=== PATIENT | female | born 1935 | race Asian ===

== ENCOUNTER 2017-09-30 21:12 | Inpatient (IN) | payer MEDICARE, OTHER ==
[~2017-09-30] VITALS: Ht 165.1 cm; Wt 58.5 kg
[~2017-09-30 21:12] MED LIST: AMLODIPINE BESYL5 MG ORAL; DONEPEZIL HCL10 MG ORAL; EVISTA60 MG ORAL; FUROSEMIDE20 M1 ORAL; GABAPENTIN100 MG ORAL; GLIPIZIDE ER2.5 MG PO; IMIPRAMINE HCL25 MG PO; METFORMIN HCL500 M1 ORAL; METOPROLOL SUC100 MG ORAL; POTASSIUM CHLO10 ME3 ORAL; SIMVASTATIN20 MG ORAL; TOFRANIL50 MG ORAL; VERAPAMIL ER120 MG PO; WARFARIN SODIUM3 MG ORAL
[2017-09-30] MEDS ORDERED: NS 1000ml 1,900 ML IVLG ONE (21:30)
[2017-09-30 21:59] LABS: BASOPHILS % (AUTO) 0.7 % (0.0-2.0); EOSINOPHILS % (AUTO) 0.4 % (0.0-3.0); HEMATOCRIT 38.8 % (37.0-47.0); HEMOGLOBIN 13.1 G/DL (12.0-16.0); LYMPHOCYTES % (AUTO) 27.8 % (20.0-45.0); MEAN CORPUSCULAR VOLUME 100 FL (80-99); MONOCYTES % (AUTO) 9.5 % (1.0-10.0); NEUTROPHILS % (AUTO) 61.6 % (45.0-75.0); PLATELET COUNT 166 K/UL (150-450); RED BLOOD COUNT 3.88 M/UL (4.20-5.40); RED CELL DISTRIBUTION WIDTH 13.2 % (11.6-14.8); WHITE BLOOD COUNT 8.4 K/UL (4.8-10.8)
[2017-09-30 22:13] LABS: ANION GAP 10 mmol/L (5-15); BLOOD UREA NITROGEN 66 mg/dL (7-18); CALCIUM 8.9 MG/DL (8.5-10.1); CARBON DIOXIDE 20 MMOL/L (21-32); CHLORIDE 102 MMOL/L (98-107); CREATININE 3.1 MG/DL (0.55-1.30); POTASSIUM 4.3 MMOL/L (3.5-5.1); SODIUM 132 MMOL/L (136-145)
[2017-09-30 22:30] LABS: ALANINE AMINOTRANSFERASE 17 U/L (12-78); ALBUMIN 2.6 G/DL (3.4-5.0); ALBUMIN/GLOBULIN RATIO 0.9 (1.0-2.7); ALKALINE PHOSPHATASE 57 U/L (46-116); ASPARTATE AMINO TRANSFERASE 24 U/L (15-37); BILIRUBIN,TOTAL 0.5 MG/DL (0.2-1.0); CKMB 1.8 NG/ML (0.0-3.6); CREATINE KINASE 44 U/L (26-308)
[2017-09-30 22:55] VITALS: BP 81/39
[2017-09-30 23:06] LABS: APPEARANCE,URINE CLEAR; BILIRUBIN, URINE 1+ (NEGATIVE); COLOR,URINE YELLOW; GLUCOSE, URINE (UA) NEGATIVE (NEGATIVE); KETONES,URINE NEGATIVE (NEGATIVE); LEUKOCYTE ESTERASE ,URINE 1+ (NEGATIVE); NITRITE,URINE NEGATIVE (NEGATIVE); PH,URINE 5 (4.5-8.0); PROTEIN,URINE NEGATIVE (NEGATIVE); UROBILINOGEN,URINE 1 MG/DL (0.0-1.0)
[2017-09-30 23:58] VITALS: BP 92/53
[2017-10-01] VITALS (8 sets, daily range): BP systolic 79–100; BP diastolic 41–56
[2017-10-01] MEDS ORDERED: cefTRIAXone 1 GM in NS 55 ML IVPB ONE ×2
[2017-10-01] MEDS ORDERED: ACETAMINOPHEN325 M1 ORAL (00:18)
[2017-10-01] MEDS ORDERED: CATAPRES0.1 MG ORAL (00:18)
[2017-10-01] MEDS ORDERED: ALBUTEROL2.5 MG/3 M INH (00:18)
[2017-10-01] MEDS ORDERED: PRAVASTATIN SOD20 M1 ORAL (00:18)
[2017-10-01] MEDS ORDERED: MILK OF MA400 MG/51 ORAL (00:18)
[2017-10-01] MEDS ORDERED: METOPROLOL SUCC50 MG ORAL (00:18)
[2017-10-01] MEDS ORDERED: MELATONIN3 MG ORAL (00:18)
[2017-10-01] MEDS ORDERED: OMEPRAZOLE20 M2 ORAL (00:18)
[2017-10-01] MEDS ORDERED: DULCOLAX10 MG RC (00:18)
[2017-10-01] MEDS ORDERED: ROBITUSSIN COU237 M1 PO (00:18)
[2017-10-01] MEDS ORDERED: SPIRONOLACTONE25 MG ORAL (00:18)
[2017-10-01] MEDS ORDERED: DUONEB 0.5-3(2.53 ML HHN (00:18)
[2017-10-01] MEDS ORDERED: PLAVIX75 MG ORAL (00:30)
[2017-10-01] MEDS ORDERED: POTASSIUM CHLO20 ME1 ORAL (00:30)
[2017-10-01] MEDS ORDERED: TRAMADOL HCL50 MG ORAL (00:30)
[2017-10-01] MEDS ORDERED: IRON325 M1 PO (00:30)
[2017-10-01] MEDS ORDERED: LACTULOSE20 GM/301 ORAL (00:30)
[2017-10-01] MEDS ORDERED: ASPIR 8181 MG ORAL (00:30)
[2017-10-01] MEDS ORDERED: NAMENDA5 MG ORAL (00:30)
[2017-10-01] MEDS ORDERED: VITAMIN D1000 UNI1 ORAL (00:30)
[2017-10-01] MEDS ORDERED: DONEPEZIL HCL10 M2 ORAL (00:30)
[2017-10-01] MEDS ORDERED: FUROSEMIDE20 M1 ORAL (00:30)
[2017-10-01] MEDS ORDERED: GABAPENTIN100 MG ORAL (00:30)
--- NOTE | 2017-10-01 01:06 | Emergency Room Report ---
History of Present Illness General Chief Complaint: Generalized Weakness Source: Family Member, Medical Record, EMS, PMD Present Illness HPI Is an 80-year-old Faro[place] female with a history of hypertension, atrial fibrillation with a pacemaker. She presented from skilled nursing with altered mental status. Onset for couple days. No fever or chills. No nausea no vomiting. No diarrhea. Unknown chest pain. History from the nursing of [facility] and recent admission to [facility] last month. Allergies: Coded Allergies: No Known Allergies (Unverified , 11/07/13) Patient History Past Medical History: see triage record, old chart reviewed, HTN Past Surgical History: other Pertinent Family History: none Social History: Denies: smoking Last Menstrual Period: NA Now: No Immunizations: other Reviewed Nursing Documentation: PMH: Agreed, PSxH: Agreed Nursing Documentation-PMH Hx Hypertension: Yes Hx Pacemaker: Yes Hx Diabetes: Yes Hx Cancer: No Review of Systems Constitutional: Reports: weakness Eye: Denies: eye pain, blurred vision ENT: Denies: ear pain, nose congestion, throat swelling Respiratory: Denies: cough, shortness of breath Cardiovascular: Denies: chest pain, palpitations Gastrointestinal: Denies: abdominal pain, diarrhea, nausea, vomiting Musculoskeletal: Denies: back pain, joint pain Skin: Denies: rash Neurological: Denies: headache, numbness Endocrine: Denies: increased thirst, increased urine Hematologic/Lymphatic: Denies: easy bruising All Other Systems: negative except mentioned in HPI Physical Exam Vital Signs Date Time Temp Pulse Resp B/P (MAP) Pulse Ox O2 Delivery O2 Flow Rate FiO2 09/30/17 21:08 98.1 76 20 81/45 96 Nasal Cannula 2.0 vitals with hypotension Sp02 EP Interpretation: reviewed, normal General Appearance: no apparent distress, lethargic Head: normocephalic, atraumatic Eyes: bilateral eye PERRL, bilateral eye EOMI ENT: hearing grossly normal, normal pharynx Neck: full range of motion, supple, no meningismus Respiratory: chest non-tender, lungs clear, normal breath sounds Cardiovascular #1: regular rate, rhythm, no murmur Gastrointestinal: normal bowel sounds, non tender, no mass, no organomegaly, no bruit, non-distended Musculoskeletal: back normal, normal range of motion Neurologic: grossly normal Skin: warm/dry Procedures Critical Care Time Critical Care Time Critical care is mandated in this patient who presented with hypotension. Patient require my urgent intervention to attenuate the risks of metabolic collapse which may lead to cardiovascular collapse and . Critical care time is 35 minutes excluding any reportable procedure. Critical care time included evaluation, multiple reevaluation, looking at old charts, interpreting laboratory and diagnostic data, discussing case with patient and family and consultants, and charting. Medical Decision Making Diagnostic Impression: Primary Impression: Toxic metabolic encephalopathy Additional Impressions: ARF (acute renal failure) Qualified Codes: N17.9 - Acute kidney failure, unspecified Hypotension Qualified Codes: I95.9 - Hypotension, unspecified ER Course Patient with otherwise weakness. No obvious infection. She does have some mild bacteria in the urine. Will start on antibiotics. Blood pressure improved with IV fluid. I discussed the case with Dr. Lo who will admit. Lab Results Impression labs unremarkable EKG Diagnostic Results Rate: normal Rhythm: other - Paced ST Segments: no acute changes Rhythm Strip Diag. Results Rhythm Strip Time: 01:05 EP Interpretation: yes Rate: 70 Rhythm: NSR, no PVC's, no ectopy Chest X-Ray Diagnostic Results Chest X-Ray Diagnostic Results : Chest X-Ray Ordered: Yes # of Views/Limited/Complete: 1 View Indication: Chest Pain EP Interpretation: Yes Interpretation: no consolidation, no effusion, no pneumothorax, no acute cardiopulmonary disease Impression: No acute disease Electronically Signed by: Chuckie Simmons MD CT/MRI/US Diagnostic Results CT/MRI/US Diagnostic Results : Imaging Test Ordered: ct head Impression read by radiologist. Neg Last Vital Signs Date Time Temp Pulse Resp B/P (MAP) Pulse Ox O2 Delivery O2 Flow Rate FiO2 10/01/17 00:50 98.1 70 16 97/56 99 Nasal Cannula 2.0 Status: improved Disposition: ADMITTED INPATIENT Condition: Serious Referrals: NON PHYSICIAN (PCP) CHUCKIE SIMMONS M.D. Oct 01, 2017 01:06
[2017-10-01] MEDS ORDERED: Warfarin Sodium 5mg ORAL ONE ×2 (04:00→17:00)
[2017-10-01] MEDS ORDERED: Vancomycin 1gm inj IVPB ONE (04:32)
[2017-10-01] MEDS ORDERED: Vancomycin 1gm/D5W 275ml IVPB ONE ×2 (05:00)
--- NOTE | 2017-10-01 09:47 | Diagnostic Imaging Report ---
Indication: Altered mental status Technique: Continuous helical CT scanning of the head was performed utilizing automated exposure control without intravenous contrast material. Axial and coronal reconstructions were obtained. Comparison: None CT dose: Total DLP 1397 mGycm; CTDI vol 70.5 mGy Findings: There is no acute intracranial hemorrhage, mass effect or cortical edema. The ventricles, cisterns and sulci are prominent consistent with atrophy. Periventricular hypoattenuation is seen, a nonspecific finding. Probable remote lacunar infarcts in the cerebellum. Bilateral basal ganglia calcifications noted. Mastoid air cells are clear. Mucosal thickening noted in some ethmoid air cells. 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 No skull fracture. Impression: No evidence of acute intracranial hemorrhage, mass effect or cortical edema. Atrophy and nonspecific periventricular hypoattenuation suggestive of chronic ischemic microvascular changes. Acute on chronic ischemia not entirely excluded. MRI may be obtained for more sensitive evaluation as clinically indicated. This corresponds with the [facility] preliminary report. The CT scanner at [facility] is accredited by the [employer] and the scans are performed using protocols designed to limit radiation exposure to as low as reasonably achievable to attain images of sufficient resolution adequate for diagnostic evaluation.
[2017-10-01] MEDS: Cefepime HCl 0.5 GM in D5W 55 ML IVPB SCH (09:50)
[2017-10-01 10:35] LABS: BASOPHILS % (AUTO) 0.6 % (0.0-2.0); EOSINOPHILS % (AUTO) 0.2 % (0.0-3.0); HEMATOCRIT 40.1 % (37.0-47.0); HEMOGLOBIN 13.8 G/DL (12.0-16.0); LYMPHOCYTES % (AUTO) 20.7 % (20.0-45.0); MEAN CORPUSCULAR VOLUME 102 FL (80-99); MONOCYTES % (AUTO) 7.1 % (1.0-10.0); NEUTROPHILS % (AUTO) 71.3 % (45.0-75.0); PLATELET COUNT 149 K/UL (150-450); RED BLOOD COUNT 3.94 M/UL (4.20-5.40); RED CELL DISTRIBUTION WIDTH 13.2 % (11.6-14.8)
[2017-10-01 11:01] LABS: ALANINE AMINOTRANSFERASE 17 U/L (12-78); ALBUMIN 2.5 G/DL (3.4-5.0); ALBUMIN/GLOBULIN RATIO 0.8 (1.0-2.7); ALKALINE PHOSPHATASE 70 U/L (46-116); ANION GAP 11 mmol/L (5-15); ASPARTATE AMINO TRANSFERASE 16 U/L (15-37); BILIRUBIN,TOTAL 0.3 MG/DL (0.2-1.0); BLOOD UREA NITROGEN 63 mg/dL (7-18); CALCIUM 8.1 MG/DL (8.5-10.1); CARBON DIOXIDE 18 MMOL/L (21-32); CHLORIDE 107 MMOL/L (98-107); CREATININE 2.4 MG/DL (0.55-1.30); POTASSIUM 4.2 MMOL/L (3.5-5.1); SODIUM 136 MMOL/L (136-145)
[2017-10-01] MEDS ORDERED: Sodium Chloride 500ML 500 ML IV ONE (12:30)
--- NOTE | 2017-10-01 12:49 | Diagnostic Imaging Report ---
. Indication: Altered mental status Technique: XRAY Chest 1v Comparison: 11/15/2013 Findings: Heart is enlarged but stable in size. Atherosclerotic calcifications noted in the aorta. These make her unchanged in position. There is mild interstitial prominence/congestion. There is no focal airspace consolidation, pleural effusion or pneumothorax. There is osteopenia and degenerative change of the spine. . There is compression deformity of an upper lumbar vertebral body, likely L1. Evidence of prior kyphoplasty at a level below that of the compression deformity. Impression: Cardiomegaly and mild interstitial opacification/edema. Correlate for signs of CHF. Age indeterminant upper lumbar compression fracture. Study obtained via the emergency department however patient admitted to the hospital at time of dictation of the final report.
[2017-10-01] MEDS ORDERED: Sodium Chloride 500ML 550 ML IV SCH (13:30)
[2017-10-01] MEDS: NovoLOG Insulin Flexpen SUBQ SCH ×2 (16:38→21:31)
--- NOTE | 2017-10-01 17:54 | Cardiology Report ---
APPROVED REPORT EKG Measurement Heart [id number] AV sequential pacemaker Abnormal ECG
[2017-10-01] MEDS ORDERED: Heparin 5000 units/ml inj SUBQ SCH (21:00)
[2017-10-02] VITALS: BP 98/52
--- NOTE | 2017-10-02 02:45 | History and Physical Report ---
DATE OF ADMISSION: 09/30/2017 CHIEF COMPLAINT: Sepsis and altered mental status. HISTORY OF PRESENT ILLNESS: The patient is an unfortunate female with a history of cirrhosis, hypertension, pacemaker, dementia, atrial fibrillation, and ischemic cardiomyopathy. She was admitted with complaints of altered mental status. The patient is confused and unable to provide any history. On evaluation in the emergency room, the patient's laboratories are significant for a creatinine of 3, sodium of 132. Her troponin was elevated at 0.093. She had x-ray evidence of bilateral infiltrates consistent with pneumonia. The patient has been started on broad-spectrum IV antibiotics. She has been pancultured. She is now admitted for further evaluation and care. PAST MEDICAL HISTORY: As above. PAST SURGICAL HISTORY: None. CURRENT MEDICATIONS: Reconciled and reviewed. ALLERGIES: None. FAMILY HISTORY: None. SOCIAL HISTORY: There is no known history of tobacco, ethanol, or drugs. REVIEW OF SYSTEMS: Unobtainable. PHYSICAL EXAMINATION: GENERAL: The patient is a thin female, in no apparent distress. She is awake and does answer some simple questions, follows commands. VITAL SIGNS: Temperature 98 degrees, pulse 70, respirations 16, and blood pressure 92/53. NECK: Supple. No jugular venous distention. HEART: Regular rate and rhythm. LUNGS: Show significant scattered rhonchi. ABDOMEN: Soft, nontender, and nondistended. EXTREMITIES: Without clubbing or cyanosis. LABORATORY AND DIAGNOSTIC DATA: Chest x-ray, bibasilar infiltrates. White count was 8, hemoglobin 13, hematocrit 38, and platelet count of 162. Sodium is 132, BUN 66, and creatinine was 3.1. Lactic acid was 1.6. Troponin 0.093. ASSESSMENT: This is an unfortunate female with a history of atrial fibrillation, ischemic cardiomyopathy, and cirrhosis, admitted with acute renal failure and sepsis secondary to pneumonia. PLAN: Cautious hydration. Monitor volume status closely. Broad-spectrum IV antibiotics. Follow up cultures. Check an ammonia level. Cardiology, Renal, Pulmonary, and ID consultations to be obtained. The patient's status is currently guarded. Satish Dobbins M.D. DR: GARCIA JOB#: [id number] CC:
[2017-10-02 04:00] VITALS: BP 104/43
[2017-10-02] MEDS: NovoLOG Insulin Flexpen SUBQ SCH ×4 (06:29→20:55)
--- NOTE | 2017-10-02 06:30 | Progress Note ---
DATE: 10/01/2017 CARDIOLOGY PROGRESS NOTE SUBJECTIVE: The patient was seen last evening in the emergency room. She remains withdrawn and lethargic although somewhat more responsive today. She continues to have episodes of low blood pressure readings, below 90 systolic. OBJECTIVE: VITAL SIGNS: Blood pressure 79/46, pulse 72, and respiratory rate 18. Presently afebrile. Oxygen saturation on room air is 92%. HEENT: Temporal wasting. Dry mucous membranes. LUNGS: Bilateral breath sounds with scattered rhonchi. HEART: Regular rhythm and rate. Normal S1 and S2 with a fourth heart sound and a 1/6 systolic murmur at the base. ABDOMEN: Soft and nontender. EXTREMITIES: Without edema. Capillary refill is diminished. LABORATORY DATA: Chest x-ray with bilateral infiltrates. hvac manager reveals a paced rhythm. White count 9 and hemoglobin 13.8. Sodium 136, potassium 4.2, bicarbonate 18, BUN 63, and creatinine 2.4. Troponin 0.087. Albumin 2.5. Pro-natriuretic peptide over 10,000. IMPRESSION: 1. Healthcare-acquired pneumonia. 2. Sepsis, shock. 3. Acute renal failure. 4. Hypertensive cardiomyopathy. 5. Acute myocardial infarction. 6. Azcimzeh-ov-iqiiot protein-calorie malnutrition. 7. Acute on chronic diastolic congestive heart failure. PLAN: 1. Continue hydration with isotonic saline. 2. Empiric broad-spectrum antibiotics. 3. Follow up culture results. 4. Fluid challenge for low blood pressure, hope to avoid pressors. 5. Serial troponin. 6. DVT prophylaxis. 7. Respiratory hygiene. 8. Monitor cardiorenal parameters and volume status. Alexander Lo M.D. DR: HOLLAND JOB#: [id number] CC:
--- NOTE | 2017-10-02 06:36 | Cardiology Report ---
APPROVED REPORT EXAM: Two-dimensional and M-mode echocardiogram with Doppler and color Doppler. INDICATION Congestive Heart Failure M-Mode DIMENSIONS IVSd1.4 (0.7-1.1cm)Left Atrium (MM)5.4 (1.6-4.0cm) LVDd4.8 (3.5-5.6cm)Aortic Root3.1 (2.0-3.7cm) PWd1.5 (0.7-1.1cm)Aortic Cusp Exc.1.8 (1.5-2.0cm) LVDs2.9 (2.5-4.0cm) PWs1.9 cm Technically difficult study due to poor acoustical windows. Normal left ventricular chamber size, systolic function and wall motion. Left ventricular ejection fraction estimated to be 60-65%. No evidence of left ventricular hypertrophy. No evidence of pericardial or pleural effusion. Right cardiac chamber sizes are within normal limits. Moderate left atrial enlargement by 2D. Focal aortic valve sclerosis with adequate cusp excursion. Thickened mitral valve leaflets with normal excursion. Mild mitral annulus and aortic root calcification. Pulmonic valve is well visualized. Normal tricuspid valve structure. IVC is normal in size and collapsible with respiration. Probable pacemaker wire present in the right side chambers. A color flow and spectral Doppler study was performed and revealed: No aortic regurgitation. Mild mitral regurgitation. Mitral inflow velocities indicates possible pseudo normalization pattern implying significant left ventricular diastolic dysfunction. Moderate to severe tricuspid regurgitation. Tricuspid systolic velocities suggests peak right ventricular systolic pressure of 40 mmHg Consistent with mild pulmonary hypertension.
[2017-10-02 08:00] VITALS: BP 117/65
[2017-10-02] MEDS: Cefepime HCl 0.5 GM in D5W 55 ML IVPB SCH (09:03)
[2017-10-02 09:30] LABS: BASOPHILS % (AUTO) 0.5 % (0.0-2.0); EOSINOPHILS % (AUTO) 0.6 % (0.0-3.0); HEMATOCRIT 37.5 % (37.0-47.0); HEMOGLOBIN 12.7 G/DL (12.0-16.0); LYMPHOCYTES % (AUTO) 23.1 % (20.0-45.0); MEAN CORPUSCULAR VOLUME 102 FL (80-99); MONOCYTES % (AUTO) 6.1 % (1.0-10.0); NEUTROPHILS % (AUTO) 69.7 % (45.0-75.0); PLATELET COUNT 140 K/UL (150-450); RED BLOOD COUNT 3.66 M/UL (4.20-5.40); RED CELL DISTRIBUTION WIDTH 13.5 % (11.6-14.8); WHITE BLOOD COUNT 7.5 K/UL (4.8-10.8)
[2017-10-02 10:03] LABS: ALANINE AMINOTRANSFERASE 10 U/L (12-78); ALBUMIN 2.4 G/DL (3.4-5.0); ALBUMIN/GLOBULIN RATIO 0.8 (1.0-2.7); ALKALINE PHOSPHATASE 48 U/L (46-116); ANION GAP 7 mmol/L (5-15); ASPARTATE AMINO TRANSFERASE 15 U/L (15-37); BILIRUBIN,TOTAL 0.4 MG/DL (0.2-1.0); BLOOD UREA NITROGEN 56 mg/dL (7-18); CALCIUM 8.2 MG/DL (8.5-10.1); CARBON DIOXIDE 19 MMOL/L (21-32); CHLORIDE 114 MMOL/L (98-107); CREATININE 1.6 MG/DL (0.55-1.30); POTASSIUM 4.5 MMOL/L (3.5-5.1); SODIUM 140 MMOL/L (136-145)
--- NOTE | 2017-10-02 10:21 | General Progress Note ---
Assessment/Plan Problem List: (1) Cirrhosis ICD Codes: K74.60 - Unspecified cirrhosis of liver SNOMED: 31597805 (2) Hepatic encephalopathy ICD Codes: K72.90 - Hepatic failure, unspecified without coma SNOMED: 63315852 (3) Anemia (4) Acute CHF (5) Respiratory failure, acute (6) Hypokalemia (7) Hypotension ICD Codes: I95.9 - Hypotension, unspecified SNOMED: 57798053 Qualifiers: Qualified Codes: I95.9 - Hypotension, unspecified (8) Toxic metabolic encephalopathy ICD Codes: G92 - Toxic encephalopathy SNOMED: 733568413 (9) ARF (acute renal failure) ICD Codes: N17.9 - Acute kidney failure, unspecified SNOMED: 94349097 Qualifiers: Qualified Codes: N17.9 - Acute kidney failure, unspecified Status: stable Assessment/Plan swallow eval ivf iv abx follow up cultures monitor cxr lactulose added monitor renal fxn Subjective ROS Limited/Unobtainable: No Constitutional: Reports: malaise, weakness HEENT: Reports: no symptoms Cardiovascular: Reports: no symptoms Respiratory: Reports: no symptoms Gastrointestinal/Abdominal: Reports: no symptoms Genitourinary: Reports: no symptoms Neurologic/Psychiatric: Reports: pre-existing deficit Endocrine: Reports: no symptoms Hematologic/Lymphatic: Reports: no symptoms Allergies: Coded Allergies: No Known Allergies (Unverified , 11/07/13) All Systems: reviewed and negative except above Subjective no events. bp better. no fever or chills. Objective Last 24 Hour Vital Signs Date Time Temp Pulse Resp B/P (MAP) Pulse Ox O2 Delivery O2 Flow Rate FiO2 10/02/17 08:00 97.9 70 20 117/65 95 Room Air 10/02/17 04:00 70 10/02/17 04:00 99.0 66 20 104/43 96 Room Air 10/02/17 00:00 99.1 70 18 98/52 95 Room Air 10/02/17 00:00 70 10/01/17 20:00 70 10/01/17 20:00 98.3 72 20 100/45 96 Room Air 10/01/17 16:00 97.9 69 20 99/42 94 Room Air 10/01/17 16:00 70 10/01/17 14:45 84/44 10/01/17 13:39 83/41 10/01/17 12:00 70 10/01/17 12:00 96.8 72 18 79/46 92 Room Air Intake and Output 10/01/17 10/02/17 19:00 07:00 Intake Total 1430 ml Output Total 450 ml 800 ml Balance 980 ml -800 ml Intake IV Total 1430 ml Output Urine Total 450 ml 800 ml # Bowel Movements 1 Laboratory Tests 10/02/17 08:25: White Blood Count 7.5, Red Blood Count 3.66L, Hemoglobin 12.7, Hematocrit 37.5, Mean Corpuscular Volume 102H, Mean Corpuscular Hemoglobin 34.8H, Mean Corpuscular Hemoglobin Concent 34.0, Red Cell Distribution Width 13.5, Platelet Count 140L, Mean Platelet Volume 5.9L, Neutrophils (%) (Auto) 69.7, Lymphocytes (%) (Auto) 23.1, Monocytes (%) (Auto) 6.1, Eosinophils (%) (Auto) 0.6, Basophils (%) (Auto) 0.5, Sodium Level 140, Potassium Level 4.5, Chloride Level 114H, Carbon Dioxide Level 19L, Anion Gap 7, Blood Urea Nitrogen 56H, Creatinine 1.6H, Estimat Glomerular Filtration Rate , Glucose Level 136H, Calcium Level 8.2L, Total Bilirubin 0.4, Aspartate Amino Transf (AST/SGOT) 15, Alanine Aminotransferase (ALT/SGPT) 10L, Alkaline Phosphatase 48, Ammonia 70H, Total Protein 5.5L, Albumin 2.4L, Globulin 3.1, Albumin/Globulin Ratio 0.8L, Thyroid Stimulating Hormone (TSH) 0.117L Height (Feet): 5 Height (Inches): 5.00 Weight (Pounds): 129 General Appearance: WD/WN, alert Neck: supple Cardiovascular: normal rate, regular rhythm Respiratory/Chest: chest wall non-tender, lungs clear, normal breath sounds, no respiratory distress Abdomen: normal bowel sounds, non tender, soft, no organomegaly Edema: no edema noted Arm (L), no edema noted Arm (R), no edema noted Leg (L), no edema noted Leg (R), no edema noted Pedal (L), no edema noted Pedal (R), no edema noted Generalized WILFRID ORTIZ Oct 02, 2017 10:21
[2017-10-02] MEDS: Lactulose 10gm/15ml UDC ORAL SCH ×2 (11:14→13:14)
[2017-10-02 12:00] VITALS: BP 114/64
[2017-10-02] MEDS: Lactulose 20gm/30ml UDC ORAL SCH ×2 (14:45→18:47)
[2017-10-02 16:00] VITALS: BP 118/55
[2017-10-02 17:50] LABS: INR 2.1 (0.9-1.1)
[2017-10-02] MEDS ORDERED: Warfarin Sodium 2mg ORAL ONE (19:00)
[2017-10-02 20:00] VITALS: BP 120/76
--- NOTE | 2017-10-02 20:30 | Consultation ---
DATE OF CONSULTATION: 10/02/2017 NEPHROLOGY CONSULTATION CONSULTING PHYSICIAN: Barrett Man M.D. REFERRING PHYSICIAN: Satish Dobbins M.D. and Alexander Lo M.D. CHIEF COMPLAINT/REASON FOR CONSULTATION: Elevated BUN and creatinine. HISTORY OF PRESENT ILLNESS: The patient with a history of cirrhosis, hypertension, atrial fibrillation, pacemaker, dementia, and ischemic cardiomyopathy. She has elevated BUN and creatinine, for which I am asked to evaluate her. She has altered mental status on this admission. She was also recently in [facility] admitted 09/19/2017 with altered mental status and had evidence of cirrhosis on CT scanning. She apparently has a history of hepatitis C as well. The patient had a BUN of 23 and a creatinine of 0.9 per notes 09/18/2017. On this admission, she presented with BUN 66 and a creatinine of 2.1 on 09/30/2017 and current BUN 56, creatinine 1.6, sodium 140, and potassium 4.5. She is unable to give history. PAST SURGICAL HISTORY: Pacemaker. MEDICATIONS: Reviewed on the computer. She is unable to give any further history. ALLERGIES: None known. PHYSICAL EXAMINATION: GENERAL: The patient is lying in bed, in no acute distress. VITAL SIGNS: Temperature 97.9 degrees, pulse 70, respirations 21, blood pressure 114/64, and O2 saturation . HEENT: Keeps her eyes closed during the exam. Oral mucosa is slightly dry. NECK: No adenopathy. LUNGS: Few faint rhonchi. HEART: Rhythm is regular. I hear no murmur. ABDOMEN: Soft. There is appearance of ascites. EXTREMITIES: Show trace to 1+ edema. NEUROLOGIC: The patient is drowsy. She moves all extremities. She is non-Faroese speaking. I am unable to assess her mental status. LABORATORY DATA: Review of pertinent labs, see the history of present illness. She has an albumin of 2.4. TSH of 0.117. Her urinalysis shows negative protein, 0-2 red cells, and 2-4 white cells per high-power field. White count 7.5 and hemoglobin is 12.7. IMPRESSION: The patient has acute kidney injury over the last one to two weeks, most likely this is due to prior diuretics. She also has low albumin and cirrhosis and questionable congestive heart failure. PLAN: At this time, we will hydrate her gradually. Watch closely for any comorbidities. Repeat chest x-ray. Get a renal ultrasound. Avoid nephrotoxic agents. Her overall condition is poor with multiorgan involvement and it is possible she has kidney injury due to sepsis or other cause. She will be evaluated for the above and have appropriate cultures and studies done. We will follow closely in view of her comorbidities. Barrett Man M.D. DR: ABELARDO JOB#: [id number] CC:
[2017-10-03] VITALS: BP 101/54
[2017-10-03 04:00] VITALS: BP 108/56
--- NOTE | 2017-10-03 04:30 | Progress Note ---
DATE: 10/03/2017 CARDIOLOGY PROGRESS NOTE SUBJECTIVE: The patient is more alert and interactive. Blood pressure parameters are still tenuous, but are improving steadily. OBJECTIVE: VITAL SIGNS: Blood pressure 98/52 to 118/55, heart rate 70, and respiratory rate 20. The patient is afebrile. T-max 99.1 degrees. Monitored rhythm is paced. HEENT: Dry mucous membranes. LUNGS: Few rhonchi. CARDIAC: Regular rhythm and rate. Normal S1, S2. A 1/6 systolic murmur at apex. ABDOMEN: Soft. EXTREMITIES: There is 1+ dependent edema. The patient moves all extremities. LABORATORY AND DIAGNOSTIC DATA: Labs are reviewed. BUN and creatinine have improved, 56 and 1.6. Ammonia level is 70. IMPRESSION: 1. Urinary tract infection. 2. Sepsis with shock. 3. Acute renal failure. 4. Acute myocardial infarction. 5. Metabolic encephalopathy. 6. Elevated ammonia level. 7. Severe protein-calorie malnutrition. 8. Permanent pacemaker. 9. Paroxysmal atrial fibrillation. PLAN: 1. Continue intravenous fluid hydration. 2. Monitor volume status and cardiorenal parameters. 3. Antimicrobials. 4. Follow up culture results and sensitivities. 5. Consider addition of lactulose. 6. DVT and stress ulcer prophylaxis. 7. We will attempt to obtain records regarding prior pacemaker interrogation. Alexander Lo M.D. DR: Kassandra JOB#: [id number] CC:
[2017-10-03] MEDS: NovoLOG Insulin Flexpen SUBQ SCH ×4 (06:23→21:00)
[2017-10-03 08:00] VITALS: BP 147/82
--- NOTE | 2017-10-03 09:26 | General Progress Note ---
Assessment/Plan Problem List: (1) Cirrhosis ICD Codes: K74.60 - Unspecified cirrhosis of liver SNOMED: 99544283 (2) Hepatic encephalopathy ICD Codes: K72.90 - Hepatic failure, unspecified without coma SNOMED: 29635516 (3) Anemia (4) Acute CHF (5) Respiratory failure, acute (6) Hypokalemia (7) Hypotension ICD Codes: I95.9 - Hypotension, unspecified SNOMED: 54142742 Qualifiers: Qualified Codes: I95.9 - Hypotension, unspecified (8) Toxic metabolic encephalopathy ICD Codes: G92 - Toxic encephalopathy SNOMED: 288432442 (9) ARF (acute renal failure) ICD Codes: N17.9 - Acute kidney failure, unspecified SNOMED: 99974910 Qualifiers: Qualified Codes: N17.9 - Acute kidney failure, unspecified Status: stable, progressing Assessment/Plan swallow eval noted pos with caution ivf per renal follow up labs- pending for today iv abx follow up cultures monitor cxr lactulose added monitor renal fxn compliance stressed Subjective ROS Limited/Unobtainable: Yes Constitutional: Reports: malaise, weakness HEENT: Reports: no symptoms Cardiovascular: Reports: no symptoms Respiratory: Reports: no symptoms Gastrointestinal/Abdominal: Reports: no symptoms Genitourinary: Reports: no symptoms Neurologic/Psychiatric: Reports: pre-existing deficit Endocrine: Reports: no symptoms Hematologic/Lymphatic: Reports: no symptoms Allergies: Coded Allergies: No Known Allergies (Unverified , 11/07/13) All Systems: reviewed and negative except above Subjective no events. bp better. no fever or chills. not compliant with all meds Objective Last 24 Hour Vital Signs Date Time Temp Pulse Resp B/P (MAP) Pulse Ox O2 Delivery O2 Flow Rate FiO2 10/03/17 04:00 98.1 70 19 108/56 94 Room Air 10/03/17 04:00 70 10/03/17 00:00 70 10/03/17 00:00 96.8 70 20 101/54 95 Room Air 10/02/17 21:00 70 10/02/17 20:00 97.3 70 22 120/76 93 Room Air 10/02/17 16:00 70 10/02/17 16:00 97.9 70 21 118/55 95 Room Air 10/02/17 12:00 97.9 70 21 114/64 93 Room Air 10/02/17 12:00 70 Intake and Output 10/02/17 10/03/17 19:00 07:00 Intake Total 1936 ml 1000 ml Output Total 1100 ml 1000 ml Balance 836 ml 0 ml Intake Oral 400 ml IV Total 1536 ml 1000 ml Output Urine Total 1100 ml 1000 ml # Bowel Movements 1 Laboratory Tests 10/02/17 16:55: Prothrombin Time 22.6H, Prothromb Time International Ratio 2.1H 10/03/17 08:30: Prothrombin Time [Pending], Prothromb Time International Ratio [Pending], White Blood Count [Pending], Red Blood Count [Pending], Hemoglobin [Pending], Hematocrit [Pending], Mean Corpuscular Volume [Pending], Mean Corpuscular Hemoglobin [Pending], Mean Corpuscular Hemoglobin Concent [Pending], Red Cell Distribution Width [Pending], Platelet Count [Pending], Mean Platelet Volume [ Pending], Neutrophils (%) (Auto) [Pending], Lymphocytes (%) (Auto) [Pending], Monocytes (%) (Auto) [Pending], Eosinophils (%) (Auto) [Pending], Basophils (%) (Auto) [Pending], Sodium Level [Pending], Potassium Level [Pending], Chloride Level [Pending], Carbon Dioxide Level [Pending], Blood Urea Nitrogen [Pending], Creatinine [Pending], Estimat Glomerular Filtration Rate [Pending], Glucose Level [Pending], Calcium Level [Pending], Total Bilirubin [Pending], Aspartate Amino Transf (AST/SGOT) [Pending], Alanine Aminotransferase (ALT/SGPT) [Pending] , Alkaline Phosphatase [Pending], Ammonia [Pending], Pro-B-Type Natriuretic Peptide [Pending], Total Protein [Pending], Albumin [Pending], Globulin [Pending ], Random Vancomycin Level [Pending] Height (Feet): 5 Height (Inches): 5.00 Weight (Pounds): 129 Objective General Appearance: WD/WN, alert Neck: supple Cardiovascular: normal rate, regular rhythm Respiratory/Chest: chest wall non-tender, lungs clear, normal breath sounds, no respiratory distress Abdomen: normal bowel sounds, non tender, soft, no organomegaly Edema: no edema noted Arm (L), no edema noted Arm (R), no edema noted Leg (L), no edema noted Leg (R), no edema noted Pedal (L), no edema noted Pedal (R), no edema noted Generalized WILFRID ORTIZ Oct 03, 2017 09:26
[2017-10-03 09:28] LABS: BASOPHILS % (AUTO) 0.7 % (0.0-2.0); EOSINOPHILS % (AUTO) 0.7 % (0.0-3.0); HEMATOCRIT 37.9 % (37.0-47.0); HEMOGLOBIN 12.5 G/DL (12.0-16.0); MEAN CORPUSCULAR VOLUME 103 FL (80-99); MONOCYTES % (AUTO) 6.6 % (1.0-10.0); NEUTROPHILS % (AUTO) 64.9 % (45.0-75.0); PLATELET COUNT 139 K/UL (150-450); RED BLOOD COUNT 3.67 M/UL (4.20-5.40); RED CELL DISTRIBUTION WIDTH 13.8 % (11.6-14.8); WHITE BLOOD COUNT 6.8 K/UL (4.8-10.8)
[2017-10-03 09:41] LABS: INR 2.6 (0.9-1.1)
[2017-10-03 09:46] LABS: ALANINE AMINOTRANSFERASE 17 U/L (12-78); ALBUMIN 2.5 G/DL (3.4-5.0); ALBUMIN/GLOBULIN RATIO 0.8 (1.0-2.7); ALKALINE PHOSPHATASE 45 U/L (46-116); ANION GAP 10 mmol/L (5-15); ASPARTATE AMINO TRANSFERASE 18 U/L (15-37); BILIRUBIN,TOTAL 0.5 MG/DL (0.2-1.0); BLOOD UREA NITROGEN 40 mg/dL (7-18); CALCIUM 8.5 MG/DL (8.5-10.1); CARBON DIOXIDE 18 MMOL/L (21-32); CHLORIDE 114 MMOL/L (98-107); POTASSIUM 4.3 MMOL/L (3.5-5.1); SODIUM 142 MMOL/L (136-145)
[2017-10-03] MEDS: Lactulose 20gm/30ml UDC ORAL SCH ×3 (10:02→17:21)
[2017-10-03] MEDS: Cefepime HCl 0.5 GM in D5W 55 ML IVPB SCH (10:02)
--- NOTE | 2017-10-03 10:49 | Diagnostic Imaging Report ---
Reason For Exam: COUGH Technique: XRAY Chest 1v Comparison: 09/30/2018 Findings: Heart size and mediastinal contours are stable. Left-sided dual-lead pacer unchanged in position. There is mild interstitial edema/opacification. Interval development of streaky opacities at the right base thought to represent subsegmental atelectasis. Age-indeterminate lumbar compression fracture noted on prior exams not definitively seen , likely related to under penetration on today's exam. No pneumothorax. Impression: Cardiomegaly and very mild interstitial prominence. Development of streaky opacity at the right base thought to represent subsegmental atelectasis. Developing infiltrate cannot entirely excluded. Clinical correlation and follow-up exam recommended.
[2017-10-03 12:00] VITALS: BP 107/72
--- NOTE | 2017-10-03 12:45 | Diagnostic Imaging Report ---
Indication: Renal failure Technique: Multiplanar grayscale and Doppler imaging of the kidneys and bladder Comparison: None Findings: Limited exam due to patient body habitus and lack of cooperation with exam positioning. An anechoic well-circumscribed structure with posterior acoustic enhancement compatible with a cyst in the right kidney measures 2.1 cm. No hydronephrosis or sonographically appreciable renal stones bilaterally. Parenchymal echogenicity appears grossly normal. Bladder is decompressed, limiting its evaluation. Impression: Limited evaluation. No evidence of hydronephrosis bilaterally. Parenchymal echogenicity appears grossly within normal limits. Bladder not well evaluated.
--- NOTE | 2017-10-03 13:49 | Nephrology Progress Note ---
Assessment/Plan Problem List: (1) Hepatic encephalopathy (2) Cirrhosis (3) ARF (acute renal failure) (4) Acute CHF Plan bebeto lab improving, likely prerenal. Stop iv to avoid fluid overload. Edema from cirrhosis and malnutrition. Continue lactulose for enceph Subjective ROS Limited/Unobtainable: Yes Objective Objective Last 24 Hour Vital Signs Date Time Temp Pulse Resp B/P (MAP) Pulse Ox O2 Delivery O2 Flow Rate FiO2 10/03/17 12:00 97.3 70 20 107/72 99 Room Air 10/03/17 12:00 70 10/03/17 08:00 70 10/03/17 08:00 97.3 89 18 147/82 95 Room Air 10/03/17 04:00 98.1 70 19 108/56 94 Room Air 10/03/17 04:00 70 10/03/17 00:00 70 10/03/17 00:00 96.8 70 20 101/54 95 Room Air 10/02/17 21:00 70 10/02/17 20:00 97.3 70 22 120/76 93 Room Air 10/02/17 16:00 70 10/02/17 16:00 97.9 70 21 118/55 95 Room Air Intake and Output 10/02/17 10/03/17 19:00 07:00 Intake Total 1936 ml 1000 ml Output Total 1100 ml 1000 ml Balance 836 ml 0 ml Intake Oral 400 ml IV Total 1536 ml 1000 ml Output Urine Total 1100 ml 1000 ml # Bowel Movements 1 Laboratory Tests 10/02/17 16:55: Prothrombin Time 22.6H, Prothromb Time International Ratio 2.1H 10/03/17 08:30: Prothrombin Time 27.4H, Prothromb Time International Ratio 2.6H, White Blood Count 6.8, Red Blood Count 3.67L, Hemoglobin 12.5, Hematocrit 37.9, Mean Corpuscular Volume 103H, Mean Corpuscular Hemoglobin 34.1H, Mean Corpuscular Hemoglobin Concent 33.1, Red Cell Distribution Width 13.8, Platelet Count 139L, Mean Platelet Volume 5.4L, Neutrophils (%) (Auto) 64.9, Lymphocytes (%) (Auto) 27.0, Monocytes (%) (Auto) 6.6, Eosinophils (%) (Auto) 0.7, Basophils (%) (Auto ) 0.7, Sodium Level 142, Potassium Level 4.3, Chloride Level 114H, Carbon Dioxide Level 18L, Anion Gap 10, Blood Urea Nitrogen 40H, Creatinine 1.0, Estimat Glomerular Filtration Rate , Glucose Level 156H, Calcium Level 8.5, Total Bilirubin 0.5, Aspartate Amino Transf (AST/SGOT) 18, Alanine Aminotransferase (ALT/SGPT) 17, Alkaline Phosphatase 45L, Ammonia 54H, Pro-B- Type Natriuretic Peptide 7728H, Total Protein 5.5L, Albumin 2.5L, Globulin 3.0, Albumin/Globulin Ratio 0.8L, Random Vancomycin Level 4.6 Height (Feet): 5 Height (Inches): 5.00 Weight (Pounds): 129 General Appearance: alert, confused EENT: normal ENT inspection Neck: normal alignment Cardiovascular: normal rate Respiratory/Chest: rhonchi - bilaterally Abdomen: distended Extremities: moderate edema Neurologic: disoriented RAFAEL SCOTT Oct 03, 2017 13:49
[2017-10-03] MEDS ORDERED: Cefepime HCl 500 MG in NS 55 ML IVPB ONE (14:00)
[2017-10-03] MEDS ORDERED: Vancomycin 750mg/NS 250ml IVPB SCH (14:00)
[2017-10-03] MEDS: Vancomycin 750mg/NS 250ml IVPB SCH (15:04)
[2017-10-03 16:00] VITALS: BP 116/62
[2017-10-03] MEDS ORDERED: NS 500ML ONE (16:26)
[2017-10-03] MEDS ORDERED: Tubing IV Secondary IV ONE (16:26)
[2017-10-03] MEDS ORDERED: D5W 275ml ONE (16:26)
[2017-10-03 20:00] VITALS: BP 123/68
[2017-10-04] VITALS: BP 121/59
--- NOTE | 2017-10-04 02:30 | Consultation ---
DATE OF CONSULTATION: 09/30/2017 CARDIOLOGY CONSULTATION CONSULTING PHYSICIAN: Alexander Lo M.D. REQUESTING PHYSICIAN: Satish Dobbins M.D. REASON FOR CONSULTATION: Shock with atrial fibrillation. HISTORY OF PRESENT ILLNESS: The patient was seen and evaluated in the emergency room at the request of Dr. Dobbins and her primary care physician, Dr. Ortiz. She is an 80-year-old [place] female. She lives in a senior living facility. She has a history of dementia, but is verbal and interactive at baseline. For the past few days, she has been increasingly withdrawn, lethargic, and had a poor appetite. Today, she was increasingly lethargic and confused. She did not have any specific complaints. There was no fevers or chills. There was no nausea, vomiting, diarrhea, cough, congestion, or chest pain. The patient was seen in the emergency room and noted to have unstable vital signs prompting this consultation. The patient is unable to give any reliable history due to her acute illness as well as a language barrier. I spent 20 minutes time speaking with her primary physician and reviewing her alf chart. PAST MEDICAL HISTORY: Hypertension, permanent pacemaker, paroxysmal atrial fibrillation, type 2 diabetes mellitus, cerebrovascular disease with dementia, osteoarthritis, and osteoporosis. MEDICATIONS: Prior to admission, reviewed and reconciled. ALLERGIES: None. SOCIAL HISTORY: No record of smoking, alcohol, or substance abuse. FAMILY HISTORY: Noncontributory. REVIEW OF SYSTEMS: She was hospitalized at [facility] about a month ago. That hospital course included treatment for an acute infection. She has not had any cough. No nausea, vomiting, or diarrhea. No positive influenza. No change in bowel habits. Her appetite has been poor. She has not had any dysuria. There is no history of thyroid disorder. There is no history of asthma or blood clots in the legs. PHYSICAL EXAMINATION: VITAL SIGNS: Blood pressure 81/45, heart rate 70, respiratory rate 20, and afebrile. HEENT: Temporal wasting. Pale conjunctivae. Dry mucous membranes. NECK: Supple. Jugular venous pressure flat. LUNGS: Diminished breath sounds. No rales. CARDIAC: Regular rhythm and rate. Normal S1. Paradoxically split S2. ABDOMEN: Soft, nontender. EXTREMITIES: Without edema. Capillary refill is diminished. LABORATORY AND DIAGNOSTIC DATA: EKG revealed AV sequential pacemaker. Chest x-ray with mild interstitial edema and upper lumbar compression fracture. Sodium 132, potassium 4.3, bicarbonate 20, BUN 66, and creatinine 3.1. Albumin 2.6. Troponin 0.093. White count 8.4 and hemoglobin 13.1. IMPRESSION: 1. Shock. 2. Sepsis. 3. Hypovolemia. 4. Dehydration. 5. Acute renal failure. 6. Metabolic acidosis. 7. Acute fin-YV-yrbepfizc myocardial infarction, precipitated by hypoperfusion of this coronary bed. 8. Uoqynqso-pr-fpwibr protein-calorie malnutrition. 9. Paroxysmal atrial fibrillation. 10. Permanent pacemaker. PLAN: 1. Volume resuscitation. If inadequate response, start pressors with dopamine. 2. Panculture. 3. Broad-spectrum antibiotics. 4. Aspiration precautions. 5. Respiratory hygiene. 6. Swallow evaluation. 7. Hold antihypertensives. 8. Continue antiplatelet therapy. 9. DVT and stress ulcer prophylaxis. 10. Serial troponin levels. 11. We will obtain pacemaker interrogation if not recently done. Alexander Lo M.D. DR: Kassandra JOB#: [id number] CC:
--- NOTE | 2017-10-04 02:30 | Progress Note ---
DATE: 10/03/2017 CARDIOLOGY PROGRESS NOTE SUBJECTIVE: The patient is complaining of abdominal pain. She is also complaining of irritation from her Sharp catheter. Oral intake is fair. PHYSICAL EXAMINATION: VITAL SIGNS: Blood pressure 107/72, pulse 70, respiratory rate 20, and afebrile. Monitor reveals AV paced rhythm. LUNGS: Few rhonchi. HEART: Regular rhythm and rate. Normal S1, S2. A 1/6 systolic murmur at apex. ABDOMEN: Soft. EXTREMITIES: With trace edema. LABORATORY DATA: White count 6.8 and hemoglobin 12.5. Ammonia 54. Pro-natriuretic peptide 7700. BUN 40, creatinine 1.0, bicarb 18, and potassium 4.3. Albumin 2.5. IMPRESSION: 1. Chronic liver disease. 2. Elevated ammonia, improved. 3. Acute renal failure, resolved. 4. Severe protein-calorie malnutrition. 5. Acute on chronic diastolic congestive heart failure. 6. Ischemic and hypertensive cardiomyopathy. 7. Metabolic acidosis. 8. Hypovolemia, resolved. 9. Sepsis with recovered shock. 10. Permanent pacemaker with atrial fibrillation. PLAN: 1. DC intravenous fluids. 2. Maintain adequate oral intake. 3. Awaiting records regarding pacemaker data. 4. Titrate lactulose. 5. Titrate anti-failure regimen. 6. Antibiotics per Infectious Disease senior science consultant. 7. Discontinue Sharp catheter. 8. Consider abdominal CAT scan if abdominal pain persists. Alexander Lo M.D. DR: LORENZO JOB#: [id number] CC:
[2017-10-04 04:00] VITALS: BP 115/60
[2017-10-04] MEDS: NovoLOG Insulin Flexpen SUBQ SCH ×4 (06:03→20:33)
[2017-10-04 08:00] VITALS: BP 132/70
--- NOTE | 2017-10-04 08:42 | General Progress Note ---
Assessment/Plan Problem List: (1) Cirrhosis ICD Codes: K74.60 - Unspecified cirrhosis of liver SNOMED: 80104860 (2) Hepatic encephalopathy ICD Codes: K72.90 - Hepatic failure, unspecified without coma SNOMED: 69387955 (3) Anemia (4) Acute CHF (5) Respiratory failure, acute (6) Hypokalemia (7) Hypotension ICD Codes: I95.9 - Hypotension, unspecified SNOMED: 56005981 Qualifiers: Qualified Codes: I95.9 - Hypotension, unspecified (8) Toxic metabolic encephalopathy ICD Codes: G92 - Toxic encephalopathy SNOMED: 904838009 (9) ARF (acute renal failure) ICD Codes: N17.9 - Acute kidney failure, unspecified SNOMED: 69788396 Qualifiers: Qualified Codes: N17.9 - Acute kidney failure, unspecified Status: stable, progressing Assessment/Plan swallow eval noted pos with caution monitor labs iv abx follow up cultures monitor cxr lactulose for elevated ammonia monitor renal fxn compliance stressed Subjective ROS Limited/Unobtainable: Yes Constitutional: Reports: malaise, weakness HEENT: Reports: no symptoms Cardiovascular: Reports: no symptoms Respiratory: Reports: no symptoms Gastrointestinal/Abdominal: Reports: no symptoms Genitourinary: Reports: no symptoms Neurologic/Psychiatric: Reports: pre-existing deficit Endocrine: Reports: no symptoms Hematologic/Lymphatic: Reports: no symptoms Allergies: Coded Allergies: No Known Allergies (Unverified , 11/07/13) All Systems: reviewed and negative except above Subjective no events. bp better. no fever or chills. not compliant with all meds. Objective Last 24 Hour Vital Signs Date Time Temp Pulse Resp B/P (MAP) Pulse Ox O2 Delivery O2 Flow Rate FiO2 10/04/17 08:00 97.5 70 16 132/70 95 Room Air 10/04/17 04:00 98.1 70 16 115/60 95 Room Air 10/04/17 04:00 70 10/04/17 00:00 98.1 70 18 121/59 95 Room Air 10/04/17 00:00 70 10/03/17 20:00 98.2 70 20 123/68 95 10/03/17 20:00 70 10/03/17 16:00 70 10/03/17 16:00 98.1 70 18 116/62 95 Room Air 10/03/17 12:00 97.3 70 20 107/72 99 Room Air 10/03/17 12:00 70 Intake and Output 10/03/17 10/04/17 19:00 07:00 Intake Total 665 ml 995 ml Output Total 650 ml Balance 15 ml 995 ml Intake Oral 540 ml 120 ml IV Total 125 ml 875 ml Output Urine Total 650 ml # Voids 2 # Bowel Movements 1 4 Laboratory Tests 10/04/17 07:48: Prothrombin Time [Pending], Prothromb Time International Ratio [Pending], Sodium Level [Pending], Potassium Level [Pending], Chloride Level [Pending], Carbon Dioxide Level [Pending], Blood Urea Nitrogen [Pending], Creatinine [ Pending], Estimat Glomerular Filtration Rate [Pending], Glucose Level [Pending] , Calcium Level [Pending], Total Bilirubin [Pending], Aspartate Amino Transf ( AST/SGOT) [Pending], Alanine Aminotransferase (ALT/SGPT) [Pending], Alkaline Phosphatase [Pending], Total Protein [Pending], Albumin [Pending], Globulin [ Pending] Height (Feet): 5 Height (Inches): 5.00 Weight (Pounds): 129 Objective General Appearance: WD/WN, alert Neck: supple Cardiovascular: normal rate, regular rhythm Respiratory/Chest: chest wall non-tender, lungs clear, normal breath sounds, no respiratory distress Abdomen: normal bowel sounds, non tender, soft, no organomegaly Edema: no edema noted Arm (L), no edema noted Arm (R), no edema noted Leg (L), no edema noted Leg (R), no edema noted Pedal (L), no edema noted Pedal (R), no edema noted Generalized WILFRID ORTIZ Oct 04, 2017 08:42
[2017-10-04 09:05] LABS: ALANINE AMINOTRANSFERASE 18 U/L (12-78); ALBUMIN 2.6 G/DL (3.4-5.0); ALBUMIN/GLOBULIN RATIO 0.8 (1.0-2.7); ALKALINE PHOSPHATASE 48 U/L (46-116); ANION GAP 6 mmol/L (5-15); ASPARTATE AMINO TRANSFERASE 21 U/L (15-37); BILIRUBIN,TOTAL 0.9 MG/DL (0.2-1.0); BLOOD UREA NITROGEN 28 mg/dL (7-18); CARBON DIOXIDE 20 MMOL/L (21-32); CHLORIDE 114 MMOL/L (98-107); CREATININE 0.8 MG/DL (0.55-1.30); POTASSIUM 4.4 MMOL/L (3.5-5.1); SODIUM 140 MMOL/L (136-145)
[2017-10-04 09:17] LABS: INR 2.2 (0.9-1.1)
[2017-10-04] MEDS: Lactulose 20gm/30ml UDC ORAL SCH ×3 (09:22→17:31)
[2017-10-04 12:00] VITALS: BP 111/64
--- NOTE | 2017-10-04 13:29 | Nephrology Progress Note ---
Assessment/Plan Problem List: (1) Hepatic encephalopathy (2) Cirrhosis (3) ARF (acute renal failure) (4) Acute CHF Plan bebeto lab improving, likely prerenal. Stop iv to avoid fluid overload. Edema from cirrhosis and malnutrition. Continue lactulose for enceph, watch for fluid overload/chf Subjective ROS Limited/Unobtainable: Yes Objective Objective Last 24 Hour Vital Signs Date Time Temp Pulse Resp B/P (MAP) Pulse Ox O2 Delivery O2 Flow Rate FiO2 10/04/17 08:00 70 10/04/17 08:00 97.5 70 16 132/70 95 Room Air 10/04/17 04:00 98.1 70 16 115/60 95 Room Air 10/04/17 04:00 70 10/04/17 00:00 98.1 70 18 121/59 95 Room Air 10/04/17 00:00 70 10/03/17 20:00 98.2 70 20 123/68 95 10/03/17 20:00 70 10/03/17 16:00 70 10/03/17 16:00 98.1 70 18 116/62 95 Room Air Intake and Output 10/03/17 10/04/17 19:00 07:00 Intake Total 665 ml 995 ml Output Total 650 ml Balance 15 ml 995 ml Intake Oral 540 ml 120 ml IV Total 125 ml 875 ml Output Urine Total 650 ml # Voids 2 # Bowel Movements 1 4 Laboratory Tests 10/04/17 07:48: Prothrombin Time 22.9H, Prothromb Time International Ratio 2.2H, Sodium Level 140, Potassium Level 4.4, Chloride Level 114H, Carbon Dioxide Level 20L, Anion Gap 6, Blood Urea Nitrogen 28H, Creatinine 0.8, Estimat Glomerular Filtration Rate , Glucose Level 115H, Calcium Level 9.0, Total Bilirubin 0.9, Aspartate Amino Transf (AST/SGOT) 21, Alanine Aminotransferase (ALT/SGPT) 18, Alkaline Phosphatase 48, Total Protein 5.9L, Albumin 2.6L, Globulin 3.3, Albumin/ Globulin Ratio 0.8L Height (Feet): 5 Height (Inches): 5.00 Weight (Pounds): 129 General Appearance: alert EENT: normal ENT inspection Neck: normal alignment Cardiovascular: normal rate, regular rhythm Respiratory/Chest: rhonchi - bilaterally Abdomen: non tender, distended Extremities: moderate edema Neurologic: guest relations receptionist II-XII grossly normal RAFAEL SCOTT Oct 04, 2017 13:29
[2017-10-04] MEDS: Cefepime HCl 1 GM in NS 55 ML IVPB SCH (13:58)
[2017-10-04] MEDS: Vancomycin 750mg/NS 250ml IVPB SCH (15:05)
[2017-10-04 16:00] VITALS: BP 109/61
[2017-10-04] MEDS ORDERED: Warfarin Sodium 3mg ORAL ONE (17:00)
[2017-10-04 20:00] VITALS: BP 123/64
[2017-10-05] VITALS: BP 130/71
--- NOTE | 2017-10-05 03:15 | Progress Note ---
DATE: 10/04/2017 CARDIOLOGY PROGRESS NOTE SUBJECTIVE: The patient has no fevers or chills. Complying with medications. Tolerating oral intake, and abdominal pain today is improved. OBJECTIVE: VITAL SIGNS: Blood pressure 123/64, pulse 70, respirations 20, and afebrile. LUNGS: Clear. CARDIAC: Regular. Normal S1, S2. ABDOMEN: Soft. EXTREMITIES: Trace edema. LABORATORY DATA: Sodium 140, potassium 4.4, bicarbonate 20, BUN 28, and creatinine 0.8. INR 2.2. IMPRESSION: 1. Urinary tract infection with sepsis. 2. Recovered shock. 3. Warfarin coagulopathy. 4. Atrial fibrillation. 5. Metabolic acidosis, improved. 6. Moderate to severe protein-calorie malnutrition. 7. Acute on chronic diastolic congestive heart failure. 8. Permanent pacemaker. 9. Acute renal failure, resolved. 10. Hepatic cirrhosis with recovering hepatic encephalopathy. PLAN: 1. Maintain warfarin to therapeutic INR. 2. Follow up ammonia level and adjust lactulose dose accordingly. 3. Antibiotics per primary care physician. 4. Nutritional support. 5. Pacemaker interrogation if not recently done. 6. Titrate cardiovascular regimen. Alexander Lo M.D. DR: WILNER JOB#: [id number] CC:
[2017-10-05 04:00] VITALS: BP 119/65
[2017-10-05] MEDS: NovoLOG Insulin Flexpen SUBQ SCH ×2 (06:30→11:30)
[2017-10-05 08:00] VITALS: BP 124/63
[2017-10-05] MEDS ORDERED: CEFEPIME-D1 GM/50 ML IVPB (08:22)
[2017-10-05] MEDS ORDERED: VANCOMYCIN750 MG/150 IVPB (08:22)
[2017-10-05 08:46] LABS: AMMONIA 53 umol/L (11-32)
[2017-10-05 08:53] LABS: INR 2.2 (0.9-1.1)
[2017-10-05 09:03] LABS: ALANINE AMINOTRANSFERASE 19 U/L (12-78); ALBUMIN 2.8 G/DL (3.4-5.0); ALBUMIN/GLOBULIN RATIO 0.9 (1.0-2.7); ALKALINE PHOSPHATASE 52 U/L (46-116); ANION GAP 12 mmol/L (5-15); ASPARTATE AMINO TRANSFERASE 21 U/L (15-37); BILIRUBIN,TOTAL 0.9 MG/DL (0.2-1.0); BLOOD UREA NITROGEN 23 mg/dL (7-18); CALCIUM 9.6 MG/DL (8.5-10.1); CARBON DIOXIDE 19 MMOL/L (21-32); CHLORIDE 111 MMOL/L (98-107); CREATININE 0.9 MG/DL (0.55-1.30); SODIUM 142 MMOL/L (136-145)
[2017-10-05] MEDS: Lactulose 20gm/30ml UDC ORAL SCH ×2 (09:58→12:29)
[2017-10-05 12:00] VITALS: BP 119/66
--- NOTE | 2017-10-05 13:08 | Nephrology Progress Note ---
Assessment/Plan Problem List: (1) Hepatic encephalopathy (2) Cirrhosis (3) ARF (acute renal failure) (4) Acute CHF Plan bebeto lab improving, likely prerenal. Stop iv to avoid fluid overload. Edema from cirrhosis and malnutrition. Continue lactulose for enceph, watch for fluid overload/chf,stable for dc Subjective ROS Limited/Unobtainable: Yes Objective Objective Last 24 Hour Vital Signs Date Time Temp Pulse Resp B/P (MAP) Pulse Ox O2 Delivery O2 Flow Rate FiO2 10/05/17 12:00 98.8 70 18 119/66 96 Nasal Cannula 2.0 10/05/17 12:00 72 10/05/17 08:00 71 10/05/17 08:00 98.2 79 20 124/63 97 Nasal Cannula 2.0 10/05/17 04:00 70 10/05/17 04:00 98.7 70 21 119/65 91 Room Air 10/05/17 00:00 72 10/05/17 00:00 97.7 70 20 130/71 91 Room Air 10/04/17 20:00 70 10/04/17 20:00 98.4 70 20 123/64 93 Room Air 10/04/17 16:00 70 10/04/17 16:00 97.9 70 20 109/61 96 Room Air Intake and Output 10/04/17 10/05/17 19:00 07:00 Intake Total 595.000 ml Output Total 900 ml Balance -305.000 ml Intake Oral 290 ml IV Total 305.000 ml Output Urine Total 900 ml # Voids 1 # Bowel Movements 2 2 Laboratory Tests 10/05/17 08:13: Prothrombin Time 23.6H, Prothromb Time International Ratio 2.2H, Sodium Level 142, Potassium Level 4.0, Chloride Level 111H, Carbon Dioxide Level 19L, Anion Gap 12, Blood Urea Nitrogen 23H, Creatinine 0.9, Estimat Glomerular Filtration Rate , Glucose Level 185H, Calcium Level 9.6, Total Bilirubin 0.9, Aspartate Amino Transf (AST/SGOT) 21, Alanine Aminotransferase (ALT/SGPT) 19, Alkaline Phosphatase 52, Ammonia 53H, Total Protein 5.8L, Albumin 2.8L, Globulin 3.0, Albumin/Globulin Ratio 0.9L Height (Feet): 5 Height (Inches): 5.00 Weight (Pounds): 129 General Appearance: no apparent distress, alert EENT: normal ENT inspection Neck: normal alignment Cardiovascular: normal rate, regular rhythm Respiratory/Chest: lungs clear Abdomen: non tender, soft Extremities: trace edema Neurologic: banquet supervisor II-XII grossly normal RAFAEL SCOTT Oct 05, 2017 13:08
--- NOTE | 2017-10-05 15:25 | Diagnostic Imaging Report ---
Indication: Dysphasia Procedure and findings: Real-time fluoroscopic imaging performed in a lateral projection in conjunction with the speech pathologist evaluation. Variable consistencies of barium given per mouth. Findings: Significant abnormalities of both oral and pharyngeal phases of swallowing are demonstrated. Total fluoroscopic time 306 seconds. No aspiration or penetration definitely seen. Abnormal video swallow. Please refer to speech pathology evaluation for more information.
[2017-10-05] MEDS: Cefepime HCl 1 GM in NS 55 ML IVPB SCH (15:31)
[2017-10-05] MEDS ORDERED: Warfarin Sodium 3mg ORAL ONE (17:00)
--- NOTE | 2017-10-05 22:45 | Discharge Summary ---
DATE OF ADMISSION: 09/30/2017 DATE OF DISCHARGE: 10/05/2017 ADMISSION DIAGNOSES: 1. Shock. 2. Sepsis. 3. Healthcare-associated pneumonia. 4. Hypertension. 5. Diabetes. 6. Congestive heart failure. 7. History of atrial fibrillation. 8. Cirrhosis. DISCHARGE DIAGNOSES: 1. Shock. 2. Sepsis. 3. Healthcare-associated pneumonia. 4. Hypertension. 5. Diabetes. 6. Congestive heart failure. 7. History of atrial fibrillation. 8. Cirrhosis. HOSPITAL COURSE: The patient is a pleasant female, admitted with complaints of altered mental status. She was diagnosed with sepsis, secondary to pneumonia. She received IV antibiotics. She was pancultured. Chest x-ray improved with antibiotic therapy. Hospital course is complicated by hypertension, acute renal failure, improved after hydration and discontinuation of her blood pressure medications. The patient's renal function also improved with hydration. On discharge, she was doing well. She will be discharged back to the shelter facility. She will complete five additional days of IV antibiotic therapy. DISCHARGE MEDICATIONS: Please see discharge medication list for discharge medications. DIET: Cardiac, diabetic diet. ACTIVITY: Ad-Rachael. FOLLOWUP: The patient will follow up by her PMD at the shelter facility. Satish Dobbins M.D. DR: LENARD JOB#: [id number] CC:
--- NOTE | 2017-10-06 01:00 | Progress Note ---
DATE: 10/05/2017 CARDIOLOGY PROGRESS NOTE SUBJECTIVE: The patient is without nausea or vomiting. Abdominal pain has improved. OBJECTIVE: VITAL SIGNS: Blood pressure parameters are stable, now ranging from 119/65 to 124/63, heart rate 70 to 80, respiratory rate 18 to 21, afebrile, oxygen saturation on room air is 91% to 96%. LUNGS: Diminished breath sounds. HEART: Irregularly irregular rhythm. Normal S1, paradoxically split S2. ABDOMEN: Soft. EXTREMITIES: No edema. LABORATORY AND DIAGNOSTIC DATA: Sodium 142, potassium 4, bicarbonate 19, BUN 23, and creatinine 0.9. Albumin 2.8. INR 2.2. IMPRESSION: 1. Urinary tract infection with sepsis and shock, resolved. 2. Toxic and metabolic encephalopathies, recovered. 3. Atrial fibrillation, rate controlled. 4. Therapeutic INR for cardioembolic prophylaxis. 5. Permanent pacemaker with interrogation to proceed as an outpatient. 6. Diastolic dysfunction with no signs of acute congestive heart failure. 7. [id number] protein-calorie malnutrition on supplemental feedings. 8. Hepatic cirrhosis with recovering encephalopathy on lactulose. PLAN: 1. Stable for outpatient care at assisted facility. 2. Discharge medication regimen reviewed and updated. Titration further at the assisted facility based on laboratory studies. 3. Pacemaker interrogation as noted to be arranged at the assisted facility. Alexander Lo M.D. DRRadha Catalan JOB#: [id number] CC:
== END 2017-10-05 16:01 | DRG 871 ==
LOC: EDBD 21:12 → EMR 21:23 → 2E 23:49 → EDBEDREQ 10-01 00:11
DX: A41.9 Sepsis, unspecified organism (principal); G92 Toxic encephalopathy; I21.4 Non-ST elevation (NSTEMI) myocardial infarction; E43 Unspecified severe protein-calorie malnutrition; I50.33 Acute on chronic diastolic (congestive) heart failure; R65.21 Severe sepsis with septic shock; N17.9 Acute kidney failure, unspecified; J18.9 Pneumonia, unspecified organism; I11.0 Hypertensive heart disease with heart failure; N39.0 Urinary tract infection, site not specified; Z95.0 Presence of cardiac pacemaker; Y95 Nosocomial condition; K74.60 Unspecified cirrhosis of liver; I48.0 Paroxysmal atrial fibrillation; E11.9 Type 2 diabetes mellitus without complications; F01.50 Vascular dementia, unspecified severity, without behavioral disturbance, psychotic disturbance, mood disturbance, and anxiety; K72.90 Hepatic failure, unspecified without coma; I25.5 Ischemic cardiomyopathy; Z79.01 Long term (current) use of anticoagulants
CPT/HCPCS: 36415; 51702; 70450; 71045; 74230; 76775; 80053; 80202; 81003; 82140; 82550; 82553; 82962; 83605; 83880; 84443; 84484; 85025; 85610; 85730; 87040; 87081; 93005; 93306; J1815